=== PATIENT | female | born 1960 | race Two or more races ===

== ENCOUNTER → 2016-09-29 | Outpatient (CLI) | payer BC, OTHER ==
--- NOTE | 2016-09-29 16:28 | REP ---
MRI right foot without and with IV gadolinium: History: Right foot ulcer. No comparison radiographs. Gadolinium enhancement dose: 12 ml of intravenous ProHance is administered, half-dose protocol. Technique: Axial, coronal and sagittal imaging planes are utilized. T1 and T2-weighted scans were obtained in the usual fashion with and without fat saturation. Pre- and post gadolinium enhanced imaging is acquired. MRI findings: I am not able to resolve a skin ulcer. There is an area of induration and dermal thickening dorsally, medially and volar along the distal first metatarsal and at the MTP joint of the great toe. There is diffuse soft tissue edema and enhancement around the first MTP joint region. Abnormal high T2 and low T1 signal intensity are seen in the distal end of the first metatarsal. There is a small well-marginated cystic area in the medial aspect of the distal first metatarsal measuring 0.7 cm in greatest diameter. This enhances in its periphery. There is some remodel ling change in the adjacent bone and this may be chronic bunion change. Gouty arthropathy is a possibility as well. I cannot exclude osteomyelitis of the distal end of the first metatarsal. Bone signal intensity is normal in the proximal phalanx and distal phalanx of the great toe. There is evidence of midfoot and hindfoot arthropathy with subcortical cyst formation on either side of the subtalar joint as well as subcortical cyst formation in the cuboid bone at the calcaneocuboid articulation. There is subcortical cyst formation on either side of the articulation between the tarsal navicula and the medial cuneiform and a small cyst is seen in the lateral cuneiform as well. There is some marrow edema in the proximal end of the 4th metatarsal. There is some enhancement in the periphery of the cyst on either side of the subtalar joint and in the cuboid bone. There is no evidence of soft tissue abscess. Impression: Complex findings with acute appearing inflammation about the first MTP joint. Nonspecific intraosseous signal in the distal first metatarsal. I cannot exclude osteomyelitis in the distal first metatarsal. A chronic-appearing cyst with erosion in the medial aspect of the first metatarsal is seen. 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 Signed by Hay Snider MD 09/29/2016 04:35 P
== END ==
LOC: M RAD 13:12
PROVIDERS: ATTEND Surgery
DX: E11.621 Type 2 diabetes mellitus with foot ulcer (principal)
CPT/HCPCS: 73720; A9576

== ENCOUNTER → 2016-10-17 | Outpatient (REF) | payer BC, OTHER ==
[2016-10-17 16:50] LABS: MEAN CORPUSCULAR HEMOGLOBIN 28.8 pg (27.0-33.0); MEAN CORPUSCULAR HGB CONC 33.7 g/dl (32.0-36.5); MEAN CORPUSCULAR VOLUME 85.6 fl (80.0-96.0); RED CELL DISTRIBUTION WIDTH 13.7 % (11.5-14.5); WHITE BLOOD COUNT 9.4 K/mm3 (4.0-10.0)
== END ==
LOC: M LAB REF 16:25
PROVIDERS: ATTEND Surgery
DX: E11.621 Type 2 diabetes mellitus with foot ulcer (principal)

== ENCOUNTER → 2016-10-18 | Outpatient (CLI) | payer BC, OTHER ==
--- NOTE | 2016-10-18 17:15 | REP ---
White blood cell nuclear scintigraphy: History: Nonpressure chronic ulcer right foot great toe. Technique: 20.5 mCi of technetium 99m labeled white blood cell are injected and anterior and posterior flow, blood pool and 2-1/2 hour delayed images of the feet and ankles are acquired. Scintigraphic findings: The blood flow and blood pool images show normal symmetric soft tissue perfusion of the lower extremities. Delayed scan images show no focus of significant increased uptake or asymmetry with the exception of the plantar views, which show very slightly asymmetric increased uptake in the soft tissues of the great toe on the right compared to the left. Otherwise negative. Impression: Very slightly increased uptake in the soft tissues of the great toe on the right seen on the plantar view only. Signed by Hay Snider MD 10/19/2016 08:02 A
== END ==
LOC: M RAD 06:48
PROVIDERS: ATTEND Surgery
DX: L97.512 Non-pressure chronic ulcer of other part of right foot with fat layer exposed (principal)

== ENCOUNTER 2016-12-15 17:12 | Observation (INO) | payer BC, OTHER ==
[~2016-12-15] VITALS: Ht 170.2 cm; Wt 120.2 kg
[2016-12-15] MEDS ORDERED: ATOR40TA PO (17:32)
[2016-12-15] MEDS ORDERED: TOUJ1.2I SC (17:32)
[2016-12-15] MEDS ORDERED: SERT-138 PO (17:32)
[2016-12-15] MEDS ORDERED: LISINOP/HCTZ (17:32)
[2016-12-15] MEDS ORDERED: INVO100T PO (17:32)
[2016-12-15] MEDS ORDERED: NOVOINJ3 SC (17:32)
[2016-12-15] MEDS ORDERED: BUPR300T34 PO (17:32)
[2016-12-15] MEDS ORDERED: HumuLIN R (REGULAR) INSULIN (NovoLIN R) **100U/ML** PER UNIT IV ONE (20:30)
[2016-12-15] MEDS ORDERED: NS 1,000 ML IV ONE ×2 (20:30→22:30)
[2016-12-15 20:56] LABS: BASO % 0.3 % (0.0-1.0); EOS # 0.3 K/mm3 (0.0-0.50); EOS % 2.1 % (0.0-3.0); LARGE UNSTAINED CELL # 0.1 K/mm3 (0.0-0.4); LYMPH # 1.5 K/mm3 (1.5-4.5); LYMPH % 11.3 % (24.0-44.0); MEAN CORPUSCULAR HEMOGLOBIN 30.1 pg (27.0-33.0); MEAN CORPUSCULAR HGB CONC 33.8 g/dl (32.0-36.5); MEAN CORPUSCULAR VOLUME 89.1 fl (80.0-96.0); MONO # 0.5 K/mm3 (0.0-0.8); MONO % 3.6 % (0.0-5.0); NEUTROPHILS # 10.9 K/mm3 (1.8-7.7); NEUTROPHILS % 81.8 % (36.0-66.0); PLATELET COUNT, AUTOMATED 373 k/mm3 (150-450); RED CELL DISTRIBUTION WIDTH 13.9 % (11.5-14.5); WHITE BLOOD COUNT 13.4 K/mm3 (4.0-10.0)
[2016-12-15] MEDS ORDERED: HumaLOG INSULIN (NovoLOG) PER UNIT SC SCH (21:00)
[2016-12-15 21:05] LABS: VENOUS BASE EXCESS -1.7 (-2.0-2.0); VENOUS O2 SATURATION 40.6 % (60.0-80.0); VENOUS PARTIAL PRESSURE CO2 59.3 mmHg (38.0-50.0); VENOUS PARTIAL PRESSURE O2 24.7 mmHg (30.0-50.0); VENOUS STANDARD HCO3 21.4 MEQ/L; VENOUS TOTAL CO2 28.6 MEQ/L (24.0-28.0)
[2016-12-15 21:24] LABS: ALBUMIN 3.8 GM/DL (3.2-5.2); ALBUMIN/GLOBULIN RATIO 0.84 (1.00-1.93); ALKALINE PHOSPHATASE 120 U/L (45-117); ALT/SGPT 30 U/L (12-78); ANION GAP 12 MEQ/L (8-16); AST/SGOT 15 U/L (15-37); BILIRUBIN,DIRECT 0.2 MG/DL (0.0-0.2); BILIRUBIN,TOTAL 1.1 MG/DL (0.2-1.0); BLOOD UREA NITROGEN 44 MG/DL (7-18); CALCIUM LEVEL 9.6 MG/DL (8.5-10.1); CARBON DIOXIDE LEVEL 27 MEQ/L (21-32); CHLORIDE LEVEL 95 MEQ/L (98-107); GLOMERULAR FILTRATION RATE 22.2 (>51); POTASSIUM SERUM 4.3 MEQ/L (3.5-5.1); SODIUM LEVEL 134 MEQ/L (136-145); TOTAL PROTEIN 8.3 GM/DL (6.4-8.2)
[2016-12-15 21:33] LABS: GLUCOSE, FASTING 478 MG/DL (70-105)
[2016-12-15] MEDS ORDERED: NS 1,000 ML IV SCH (22:22)
[2016-12-15] MEDS ORDERED: ACETAMINOPHEN TAB 650MG DOSE (2X325MG) PO PRN (22:30)
[2016-12-15] MEDS ORDERED: METOCLOPRAMIDE INJ 10MG/2ML VIAL (J2765) IV PRN (22:30)
[2016-12-15] MEDS ORDERED: GLUCAGON FOR INJ 1 MG VIAL (J1610) SC PRN (22:45)
[2016-12-15] MEDS ORDERED: DEXTROSE 50% 50 ML SYRINGE IV PRN (22:45)
[2016-12-15] MEDS ORDERED: GLUCOSE 4 GM CHEW TABLET PO PRN (22:45)
[2016-12-15] MEDS ORDERED: LISI20TA PO (23:00)
[2016-12-15] MEDS ORDERED: VITA50003 PO (23:00)
--- NOTE | 2016-12-15 23:13 | HPE ---
DATE OF ADMISSION: 12/15/2016 This is a patient of Dayana Sotelo, a patient of Dr. Olivares, a patient of the [facility]. CHIEF COMPLAINT: Nausea. The following is a summary of her presentation: This is a 56-year-old female who has not been feeling well since 12/13/2016. Around lunchtime on 12/13/2016, she began to feel dizzy and nauseous. She describes the dizziness not as vertiginous, but more as a feeling of weakness and general malaise. She went to the bathroom and in the process of getting ready to vomit, she passed out and landed on her right knee, fell backwards. Her head apparently did not hit the ground and she recovered. No one witnessed the events, but she does not have memory of everything about the event, although there was foreshadowing that the event was about to occur. She felt fine immediately afterwards. Her fingerstick that she checked afterwards was around 289. She continued working. She went home for the day. At home, she vomited and then slept well that night. On 12/14/2016, she worked the entire day, felt relatively well, tolerated diet and slept okay. Then, on the morning of 12/15/2016, her fingerstick was 276. She went to work. She ate a breakfast bar for breakfast, took her medications as normal and then at work again began to feel quite nauseous and dizzy, got a ride home from a friend and canceled an appointment with Dr. Chun. She has had some variability in her fingersticks over the course of the last week. She has not had abdominal pain. She has not had a sense of fullness. No change in her bowel habits. She has been experiencing cold sweats associated with the nausea but no fever, no sick contact. She has not eaten out. She has had no recent history of foreign travel. She did have some gas on Monday night, 12/11/2016, after eating some onions in a potato salad. She has had an episode of vasovagal syncope with a blood draw previously. She has been previously admitted with diabetic ketoacidosis around 15 years ago. Past surgical history is notable for sections. Past medical history is notable for insulin-dependent diabetes, hypertension, hyperlipidemia, anemia, depression, history of polycystic ovarian disease, history of chronic kidney disease, seasonal allergies. ALLERGIES: Include SULFA DRUGS. FAMILY HISTORY: Notable for her father who is alive with diabetes, on dialysis and hypertension. Mother at age 68 with a history of heart disease. SOCIAL HISTORY: She is a former smoker. She works as a horseback excavator. REVIEW OF SYSTEMS: Notable for a headache, which has been chronic. She says her headaches are worse this time of year with pollen. No visual changes, no runny nose, no sore throat. No cough, no shortness of breath. No dysuria. No increased frequency. No change in bowel or bladder habits. She has a chronic right toe ulcer for which she has been following Dr. Chun, otherwise unremarkable. PHYSICAL EXAMINATION: Temperature is 97.9, pulse 103, respiratory rate 18, blood pressure 108/74, 96% on room air. Body mass index is 41.5. This is a 56-year-old who is awake, appropriately interactive, pleasantly conversant, not currently in any distress. Head is normocephalic. Sinuses are nontender. Pupils are equal, round, and reactive, anicteric, not injected. Nasal septum is midline. Mucous membranes are moist. There is evidence of thrush on her tongue. Neck is supple, thick. No cervical or supraclavicular adenopathy. Breathing is symmetrical, rested. I:E ratio is 1:3. No costovertebral angle tenderness. No sacral edema. Heart is in a regular rate and rhythm, distant sounding, normal S1, S2. Radial pulse 2+. Capillary refill is less than 2 seconds. Abdomen is soft, hypoactive bowel sounds, nontender to deep palpation. There are subcutaneous areas of thickness where she probably does frequent injections. We did discuss the need to rotate injection sites. No significant lower extremity edema. Her right great toe is cleanly dressed. There is a small hematoma under the second toe on the right foot. Sensation is grossly intact, although there is a history of diabetic neuropathy. Labs available for me to review include the following: White count 13.4, hemoglobin 17.5 and platelets of 373. Sodium is 134, potassium 4.3, chloride 95, carbon dioxide 27, anion gap is 12, BUN 44, creatinine 2.4 and glucose of 478, total bilirubin 1.1, alkaline phosphatase 120, total protein 8.3, albumin 3.8. UA is notable for 2+ leukocyte esterase, too numerous to count white cells, beta hydroxybutyrate is 17.7, point of care glucose is 395. EKG shows sinus rhythm at a rate of 89, QRS of 100, QTc of 419. No acute ST-T wave changes. My assessment is as follows: This is a 56-year-old with likely gastroenteritis or gastroparesis, ongoing nausea with hyperglycemia, nearly at the turning point for diabetic ketoacidosis. The patient will require a two midnight hospital stay for further diagnostic and workup. Plan is as follows: 1. Endocrine. The patient is at the cusp of developing diabetic ketoacidosis. Will be given intravenous (IV) fluids and insulin, monitored closely. At this point, she feels as though she may be able to take some diet and so that has been offered. If she develops nausea, will give Reglan as I have a suspicion that she may have some element of diabetic gastroparesis. I did add a lipase on, which I believe will be negative. 2. Syncope. The patient had a syncopal event, which may have been vasovagal given its presentation, but I believe monitoring her on telemetry is warranted. No findings on EKG at this moment that would suggest underlying arrhythmia. Will repeat an EKG in the morning. I have ordered a cardiac marker as well. 3. Abnormal Urinalysis. The patient does not have urinary symptoms but does have some known neuropathy. Will order a urine culture and follow. I have not ordered antibiotics at this time, but that could be an inciting cause of her presentation. 4. The patient has a chronic right great toe ulcer. Will continue with wound care as per outpatient plan. 5. The patient has thrush. Will order nystatin and check a hemoglobin A1c. 6. The patient has hypertension. Her creatinine is likely above baseline, which I would imagine is right around 2. Will hold her angiotensin-converting enzyme (ADRIANA) inhibitor and hydrochlorothiazide. 7. Deep vein thrombosis (DVT) prophylaxis ordered in the form of heparin.
[2016-12-15] MEDS: HEPARIN SOD (PORCINE) 5000 UNITS/ML VIAL SC SCH (23:38)
[2016-12-15] MEDS: LEVEMIR (INSULIN DETEMIR) 1 UNITS/0.01ML SC SCH (23:38)
[2016-12-16] MEDS ORDERED: HumaLOG INSULIN (NovoLOG) PER UNIT SC ONE (02:30)
[2016-12-16] MEDS: NYSTATIN 500,000 U/5 ML SUSP UDC SS SCH ×2 (06:35)
[2016-12-16 07:09] LABS: MEAN CORPUSCULAR HEMOGLOBIN 29.6 pg (27.0-33.0); MEAN CORPUSCULAR HGB CONC 34.4 g/dl (32.0-36.5); MEAN CORPUSCULAR VOLUME 86.1 fl (80.0-96.0); RED CELL DISTRIBUTION WIDTH 13.9 % (11.5-14.5); WHITE BLOOD COUNT 9.1 K/mm3 (4.0-10.0)
[2016-12-16 07:21] VITALS: BP 121/59
[2016-12-16] MEDS ORDERED: HumaLOG INSULIN (NovoLOG) PER UNIT SC SCH (07:30)
[2016-12-16 07:34] LABS: ALBUMIN 2.8 GM/DL (3.2-5.2); ALBUMIN/GLOBULIN RATIO 0.67 (1.00-1.93); ALKALINE PHOSPHATASE 93 U/L (45-117); ALT/SGPT 23 U/L (12-78); ANION GAP 9 MEQ/L (8-16); AST/SGOT 13 U/L (15-37); BILIRUBIN,TOTAL 0.6 MG/DL (0.2-1.0); BLOOD UREA NITROGEN 32 MG/DL (7-18); CALCIUM LEVEL 8.4 MG/DL (8.5-10.1); CARBON DIOXIDE LEVEL 26 MEQ/L (21-32); CHLORIDE LEVEL 105 MEQ/L (98-107); GLOMERULAR FILTRATION RATE 38.1 (>51); GLUCOSE, FASTING 214 MG/DL (70-105); MAGNESIUM LEVEL 2.1 MG/DL (1.8-2.4); POTASSIUM SERUM 3.8 MEQ/L (3.5-5.1); SODIUM LEVEL 140 MEQ/L (136-145)
[2016-12-16] MEDS ORDERED: PANTOPRAZOLE 40MG TAB (PROTONIX) PO SCH (09:00)
[2016-12-16] MEDS: HEPARIN SOD (PORCINE) 5000 UNITS/ML VIAL SC SCH (09:06)
[2016-12-16] MEDS: LEVEMIR (INSULIN DETEMIR) 1 UNITS/0.01ML SC SCH (09:52)
[2016-12-16] MEDS ORDERED: TOUJ1.2I SC (10:26)
[2016-12-16] MEDS ORDERED: ONDA4TAB6 PO (10:47)
--- NOTE | 2016-12-16 16:04 | DSES ---
DATE OF ADMISSION: 12/15/2016 DATE OF DISCHARGE: 12/16/2016 PRIMARY CARE PROVIDER: YAHIR Duvall PAPER NOVELTY MAKER: [facility] CONSULTATIONS: None. PROCEDURES: None. RELEVANT TESTING: Glucose on admission 478. PRIMARY ADMITTING DIAGNOSES: 1. Dehydration. 2. Acute kidney injury. 3. Weakness. 4. Syncope. 5. Early diabetic ketoacidosis (DKA). 6. Type 2 diabetes with hyperglycemia. 7. Abnormal urinalysis. 8. Leukocytosis. SECONDARY ADMITTING DIAGNOSES: 1. Chronic right great toe ulcer. 2. Thrush. 3. Type 2 diabetes, insulin dependent. 4. Obesity, body mass index (BMI) 42. BRIEF HOSPITAL COURSE: Ms. Orourke is a 56-year-old female with type 2 diabetes on insulin who presented to the emergency department (ED) on 12/15/2016 for of nausea and dizziness. Reportedly has not been feeling well since 12/13/2016 , had poor appetite, thought she might have a "stomach bug." On the day of admission, she attempted to go to the bathroom and as she was ready to vomit, she passed out and landed on her right knee. Her head did not hit the ground and she recovered immediately. Episode was not witnessed. Her fingerstick at that time was found to be 289. The episode occurred while at work and she later came home and continued to have episodes of emesis. She reportedly has a history of vasovagal syncope from blood draws in the past. Because of her symptoms, she was admitted for close monitoring. She did not have any event on telemetry. EKG did not show underlying arrhythmia. Her cardiac markers were negative. She was admitted and did receive two liters boluses. With boluses and IV fluid hydration her condition resolved even before she was admitted. Her renal function improved significantly compared to admission after her home diuretics along with angiotensin-converting enzyme (ADRIANA) inhibitor were held. Although her urinalysis did show abnormality in terms of leukocyte esterase, nitrite was negative and she did not have any symptoms, therefore she was not started on antibiotics. Because of her significantly improved condition, she was amenable to be discharged with close followup with her primary care provider (PCP). PHYSICAL EXAMINATION: At time of discharge: VITAL SIGNS: Blood pressure 121/59, heart rate 90, temperature 97.9, pulse oximetry 95% on room air. GENERAL: Patient is lying in bed, comfortable, in no acute distress. Alert, awake, oriented times three. Pleasant and cooperative. HEENT: Normocephalic, atraumatic. Moist oral mucosa. NECK: Supple, trachea midline, large neck. Could not appreciate jugular venous distention (JVD) secondary to large neck size. CHEST: Symmetric chest rise, no accessory muscle use. Breath sounds were clear to auscultation bilaterally. HEART: Regular rate and rhythm with normal S1, S2. ABDOMEN: Soft, nontender, nondistended. Bowel sounds present. No guarding, no rebound. EXTREMITIES: No pedal edema. Pedal pulses present bilaterally. NEUROLOGIC: No focal deficits appreciated. MUSCULOSKELETAL: Right 1st metatarsal currently being wrapped. She reportedly follows with Dr. Chun. Sensory intact. No focal deficit deficits appreciated. LABORATORY DATA: WBC 9.1, hemoglobin 14.6, hematocrit 42.5, platelets 278. Sodium 140, potassium 3.8, chloride 105, carbon dioxide 26, BUN 32, creatinine 1.5, glucose 214, calcium 8.4. Liver profile normal. Cardiac marker normal. DISPOSITION: Discharged home. CONDITION: Stable. ACTIVITY: As tolerated. DIET: Carbohydrate consistency diet. DISCHARGE MEDICATIONS: Include: - Zofran ODT 4 mg every 6 hours as needed - Lipitor 40 mg by mouth daily - Wellbutrin 300 mg by mouth nightly - Invokana 100 mg by mouth daily - vitamin 50,000 units on Saturdays - insulin sliding scale - sertraline 100 mg daily - Toujeo 100 units nightly but dose from 12/16/2016 should be 40 units Stop the following home medications: - lisinopril and hydrochlorothiazide until evaluation by her PCP after repeat blood work FOLLOWUP: Followup with Ms. Dayana Sotelo next week, [facility] in 2 weeks. Patient is to take her Toujeo medication but only 40 units at night tonight and resume regular dose starting tomorrow. She should have repeat blood work on Monday with results faxed to primary care provider 's (PCP) office. The patient was instructed to return to the hospital if she has worsening or recurrent symptoms or anything else concerning to patient and family. All of this was explained to the patient at the time of discharge and all questions answered. TIME SPENT: 35 minutes. My preceptor for this patient encounter was Dr. Yolanda Barrow. The preceptor was physically present in the building during the encounter and was fully available. As needed, all aspects of the patient interview, examination, medical decision making process, and medical care plan development were reviewed and approved by the preceptor. The preceptor is aware and concurs with the plan as stated in the body of this note and will attest to such by his cosignature. PA
--- NOTE | 2016-12-17 07:53 | ECGEPIP ---
Stationary ECG Study [facility] Test Date: 2016-12-16 Pat Name: NEDRA ALCOCER Department: Room: [place] [address] Gender: F Software Engineering Project Manager: rebekah : 1960 Requested By: KAROL Purdy Order Number: [id number] Reading MD: Osmani Disla Measurements Intervals [place] Rate: 87 P: 54 IA: 150 QRS: -6 QRSD: 114 T: 48 QT: 393 QTc: 473 Interpretive Statements Normal sinus rhythm Nonspecific T wave abnormality No significant change when compared to prior tracing of 12/15/2016 Correct placement c/w prior in leads V1 & V2 Electronically Signed On 12-17-2016 7:53:48 EDT by Osmani Disla
--- NOTE | 2016-12-17 08:39 | ECGEPIP ---
Stationary ECG Study [facility] - ED Test Date: 2016-12-15 Pat Name: NEDRA ALCOCER Department: Room: [place] [address] Gender: F Chief Wellness Officer: joshua : 1960 Requested By: ANGEL MANCIA PA-C. Order Number: [id number] Reading MD: Shirin Castillo Measurements Intervals [place] Rate: 89 P: 43 [place]: 142 QRS: -13 QRSD: 100 T: 39 QT: 373 QTc: 454 Interpretive Statements SINUS RHYTHM ?PRIOR INFERIOR INFARCT SIMILAR 12/16/16 Electronically Signed On 12-17-2016 8:39:09 EDT by Shirin Castillo
== END 2016-12-16 11:30 | disposition home or self-care (01) ==
LOC: M ED 18:21 → M ED INP 22:22 → INTOOBSV 22:22 → M ED INP 12-16 11:30
PROVIDERS: ADMIT Internal Medicine; ATTEND Internal Medicine
DX: E86.0 Dehydration (principal); N17.9 Acute kidney failure, unspecified; R53.1 Weakness; R55 Syncope and collapse; E13.10 Other specified diabetes mellitus with ketoacidosis without coma; R82.99 Other abnormal findings in urine; D72.829 Elevated white blood cell count, unspecified; I12.9 Hypertensive chronic kidney disease with stage 1 through stage 4 chronic kidney disease, or unspecified chronic kidney disease; E78.4 Other hyperlipidemia; D64.9 Anemia, unspecified; N18.9 Chronic kidney disease, unspecified; E11.65 Type 2 diabetes mellitus with hyperglycemia; Z79.4 Long term (current) use of insulin; E66.9 Obesity, unspecified; Z79.899 Other long term (current) drug therapy; Z88.2 Allergy status to sulfonamides; E28.2 Polycystic ovarian syndrome; L97.809 Non-pressure chronic ulcer of other part of unspecified lower leg with unspecified severity

== ENCOUNTER → 2017-01-02 | Outpatient (CLI) | payer BC, OTHER ==
[~2017-01-02] MED LIST: ATOR40TA PO; BUPR300T34 PO; INVO100T PO; LISI20TA PO; LISINOP/HCTZ; NOVOINJ3 SC; ONDA4TAB6 PO; SERT-138 PO; TOUJ1.2I SC; VITA50003 PO
== END ==
LOC: M WUC 08:43
PROVIDERS: ATTEND Nurse Practitioner Adult Health
DX: E78.00 Pure hypercholesterolemia, unspecified (principal)

== ENCOUNTER → 2017-07-10 | Outpatient (CLI) | payer OTHER, BC ==
[~2017-07-10] MED LIST changes: -ATOR40TA PO; +ATOR40TA75 PO; +VITA1CAP40 PO; -VITA50003 PO
[2017-07-10 09:46] LABS: ALBUMIN 3.6 GM/DL (3.2-5.2); ALBUMIN/GLOBULIN RATIO 0.95 (1.00-1.93); BILIRUBIN,TOTAL 0.7 MG/DL (0.2-1.0); CALCIUM LEVEL 9.3 MG/DL (8.5-10.1); CREATININE FOR GFR 1.24 MG/DL (0.55-1.02); GLOMERULAR FILTRATION RATE 47.5 (>51); POTASSIUM SERUM 4.6 MEQ/L (3.5-5.1); TOTAL PROTEIN 7.4 GM/DL (6.4-8.2)
== END ==
LOC: M WUC 08:15
PROVIDERS: ATTEND Nurse Practitioner Adult Health
DX: E78.00 Pure hypercholesterolemia, unspecified (principal); E55.9 Vitamin D deficiency, unspecified

== ENCOUNTER 2017-10-26 18:55 | Emergency (ER) | payer BC, OTHER ==
[2017-10-26] MEDS: PERCOCET 5MG/325MG TAB PO (20:04)
== END 2017-10-26 21:27 | disposition home or self-care (01) ==
LOC: M ED 18:55
DX: S83.91XA Sprain of unspecified site of right knee, initial encounter (principal); S80.01XA Contusion of right knee, initial encounter; W00.0XXA Fall on same level due to ice and snow, initial encounter; Y92.481 Parking lot as the place of occurrence of the external cause; E11.9 Type 2 diabetes mellitus without complications; E78.00 Pure hypercholesterolemia, unspecified; Z79.899 Other long term (current) drug therapy; Z79.4 Long term (current) use of insulin; Z87.891 Personal history of nicotine dependence
CPT/HCPCS: 73564

== ENCOUNTER 2017-11-03 14:13 | Day surgery (SDC) | payer BC, OTHER ==
[2017-11-03] MEDS ORDERED: LIDOCAINE 2% MDV 20 ML VIAL (14:14)
[2017-11-03] MEDS ORDERED: ROPIvacaine 0.5% 30 ML INJECTION (J2795 PER 1MG) (14:14)
[2017-11-03] MEDS ORDERED: dexameTHASONE 10 MG/1 ML VIAL PRES.FREE (J1100) (14:14)
[2017-11-03] MEDS: LR 1,000 ML IV ×3 (15:14→21:50)
[2017-11-03 15:25] LABS: BEDSIDE GLUCOSE 216 MG/DL (70-105)
[2017-11-03] MEDS ORDERED: LIDOCAINE 1% MDV 20ML VIAL SQ (16:30)
[2017-11-03] MEDS: HumaLOG INSULIN (NovoLOG) PER UNIT SC ×2 (16:32→21:00)
[2017-11-03] MEDS ORDERED: fentaNYL 100 MCG/2 ML INJECTION (J3010) As Ordered ×2 (17:13→17:18)
[2017-11-03] MEDS ORDERED: MIDAZOLAM INJ 2 MG/2 ML VIAL (J2250) As Ordered ×3 (17:13→19:00)
[2017-11-03] MEDS ORDERED: PROPOFOL 200 MG/20 ML VIAL As Ordered (17:17)
[2017-11-03] MEDS: fentaNYL 100 MCG/2 ML INJECTION (J3010) IV (17:22)
[2017-11-03] MEDS: MIDAZOLAM INJ 2 MG/2 ML VIAL (J2250) IV (17:22)
[2017-11-03 17:23] LABS: BEDSIDE GLUCOSE 150 MG/DL (70-105)
[2017-11-03] MEDS ORDERED: MIDAZOLAM INJ 2 MG/2 ML VIAL (J2250) IV (17:45)
[2017-11-03] MEDS ORDERED: fentaNYL 100 MCG/2 ML INJECTION (J3010) IV (20:15)
[2017-11-03] MEDS ORDERED: HYDROmorphone HCL 1 MG/ML SYRINGE (J1170) IV (20:15)
[2017-11-03] MEDS ORDERED: ONDANSETRON 4MG/2ML VIAL (J2405) IV ×2 (20:15→20:30)
[2017-11-03] MEDS ORDERED: PERCOCET 5MG/325MG TAB PO ×2 (20:15→20:30)
[2017-11-03] MEDS ORDERED: ACETAMINOPHEN TAB 650MG DOSE (2X325MG) PO (20:30)
[2017-11-03] MEDS ORDERED: MORPHINE 4 MG/ML 1ML VIAL (J2270) IV (20:30)
[2017-11-03] MEDS ORDERED: DEXTROSE 50% 50 ML SYRINGE IV (21:00)
[2017-11-03] MEDS ORDERED: GLUCAGON FOR INJ 1 MG VIAL (J1610) SC (21:00)
[2017-11-03] MEDS ORDERED: GLUCOSE 4 GM CHEW TABLET PO (21:00)
[2017-11-03 21:15] LABS: BEDSIDE GLUCOSE 90 MG/DL (70-105)
[2017-11-03] MEDS: SERTRALINE 100 MG TAB PO (21:50)
[2017-11-03] MEDS: IBUPROFEN 600 MG TAB PO (21:50)
[2017-11-03] MEDS: ATORVASTATIN 20 MG TAB PO (21:50)
[2017-11-04] MEDS: PERCOCET 5MG/325MG TAB PO ×3 (00:02→08:19)
[2017-11-04] MEDS: IBUPROFEN 600 MG TAB PO (04:07)
[2017-11-04] MEDS: HumaLOG INSULIN (NovoLOG) PER UNIT SC (08:20)
[2017-11-04] MEDS: ENOXAPARIN 40 MG/0.4 ML SYRINGE (J1650) SC (08:20)
[2017-11-05] MEDS ORDERED: buPROPion **XL** TABLET 150MG (WELLBUTRIN XL) PO (09:00)
[2017-11-06 07:48] LABS: BEDSIDE GLUCOSE 189 MG/DL (70-105)
[2017-11-06 07:48] LABS: BEDSIDE GLUCOSE 167 MG/DL (70-105)
[2017-11-06 12:05] LABS: BEDSIDE GLUCOSE 373 MG/DL (70-105)
== END 2017-11-04 11:40 | disposition home or self-care (01) ==
LOC: M SDC 14:13 → M MS5PR 11-04 00:30 → M SDC 11-04 11:40
DX: S76.111A Strain of right quadriceps muscle, fascia and tendon, initial encounter (principal); W19.XXXA Unspecified fall, initial encounter; Y92.89 Other specified places as the place of occurrence of the external cause; Y93.89 Activity, other specified; Y99.8 Other external cause status; I12.9 Hypertensive chronic kidney disease with stage 1 through stage 4 chronic kidney disease, or unspecified chronic kidney disease; E11.9 Type 2 diabetes mellitus without complications; F43.23 Adjustment disorder with mixed anxiety and depressed mood; R06.83 Snoring; N18.3 Chronic kidney disease, stage 3 (moderate); E78.5 Hyperlipidemia, unspecified; R39.81 Functional urinary incontinence; E55.9 Vitamin D deficiency, unspecified; K75.81 Nonalcoholic steatohepatitis (NASH); E66.01 Morbid (severe) obesity due to excess calories; Z68.41 Body mass index [BMI] 40.0-44.9, adult; Z79.899 Other long term (current) drug therapy; Z79.4 Long term (current) use of insulin; Z79.82 Long term (current) use of aspirin; Z78.0 Asymptomatic menopausal state
CPT/HCPCS: 27385

== ENCOUNTER 2017-11-18 05:56 | Emergency (ER) | payer BC, OTHER ==
[2017-11-18 06:47] LABS: BASO # 0.1 10^3/uL (0.0-0.2); BASO % 0.3 % (0.0-1.0); HEMATOCRIT 39.4 % (36.0-47.0); HEMOGLOBIN 12.9 g/dl (12.0-15.5); IMMATURE GRANULOCYTE % 1.4 % (0-3.0); LYMPH # 0.4 10^3/uL (1.5-4.5); LYMPH % 2.2 % (24.0-44.0); MEAN CORPUSCULAR HEMOGLOBIN 28.1 pg (27.0-33.0); MEAN CORPUSCULAR HGB CONC 32.7 g/dl (32.0-36.5); MEAN CORPUSCULAR VOLUME 85.8 fl (80.0-96.0); MONO # 0.7 10^3/uL (0.0-0.8); MONO % 3.8 % (0.0-5.0); NEUTROPHILS # 16.8 10^3/uL (1.8-7.7); NEUTROPHILS % 92.3 % (36.0-66.0); PLATELET COUNT, AUTOMATED 251 10^3/uL (150-450); RED BLOOD COUNT 4.59 10^6/uL (4.00-5.40); RED CELL DISTRIBUTION WIDTH 13.3 % (11.5-14.5); WHITE BLOOD COUNT 18.3 10^3/uL (4.0-10.0)
[2017-11-18] MEDS: ONDANSETRON 4MG/2ML VIAL (J2405) IV (06:51)
[2017-11-18] MEDS: NS 1,000 ML IV (07:00)
[2017-11-18 07:09] LABS: ALBUMIN 2.8 GM/DL (3.2-5.2); ALKALINE PHOSPHATASE 126 U/L (45-117); ALT/SGPT 37 U/L (12-78); ANION GAP 15 MEQ/L (8-16); AST/SGOT 34 U/L (7-37); BILIRUBIN,DIRECT 0.3 MG/DL (0.0-0.2); BILIRUBIN,TOTAL 1.3 MG/DL (0.2-1.0); BLOOD UREA NITROGEN 29 MG/DL (7-18); CALCIUM LEVEL 8.8 MG/DL (8.5-10.1); CARBON DIOXIDE LEVEL 20 MEQ/L (21-32); CHLORIDE LEVEL 95 MEQ/L (98-107); CREATININE FOR GFR 1.73 MG/DL (0.55-1.30); GLOMERULAR FILTRATION RATE 32.2 (>51); LIPASE 127 U/L (73-393); POTASSIUM SERUM 4.6 MEQ/L (3.5-5.1); SODIUM LEVEL 130 MEQ/L (136-145); TOTAL PROTEIN 6.8 GM/DL (6.4-8.2)
[2017-11-18 07:33] LABS: LACTIC ACID SEPSIS PROTOCOL 2.1 MMOL/L (0.4-2.0)
[2017-11-18 07:34] LABS: GLUCOSE, FASTING 498 MG/DL (70-100)
[2017-11-18] MEDS ORDERED: SODIUM CHLORIDE IV (08:00)
[2017-11-18 08:21] LABS: VENOUS BASE EXCESS -2.4 (-2.0-2.0); VENOUS HCO3 20.7 MEQ/L (23.0-27.0); VENOUS PARTIAL PRESSURE CO2 31.2 mmHg (38.0-50.0); VENOUS PARTIAL PRESSURE O2 89.6 mmHg (30.0-50.0); VENOUS STANDARD HCO3 22.4 MEQ/L; VENOUS TOTAL CO2 21.7 MEQ/L (24.0-28.0)
[2017-11-18] MEDS: NS 1,400 ML IV (08:27)
[2017-11-18 08:35] LABS: OSMOLALITY SERUM 303 MOSM/KG (275-295)
[2017-11-18 08:39] LABS: ESTIMATED AVERAGE GLUCOSE 200 MG/DL (60-110); HEMOGLOBIN A1c 8.6 %
[2017-11-18 09:22] LABS: PHOSPHORUS LEVEL 3.2 MG/DL (2.5-4.9)
[2017-11-18 11:21] LABS: VENOUS BASE EXCESS -4.4 (-2.0-2.0); VENOUS HCO3 20.4 MEQ/L (23.0-27.0); VENOUS O2 SATURATION 94.9 % (60.0-80.0); VENOUS PARTIAL PRESSURE CO2 36.7 mmHg (38.0-50.0); VENOUS PARTIAL PRESSURE O2 78.7 mmHg (30.0-50.0); VENOUS PH 7.363 UNITS (7.330-7.430); VENOUS STANDARD HCO3 20.8 MEQ/L; VENOUS TOTAL CO2 21.5 MEQ/L (24.0-28.0)
[2017-11-18 11:29] LABS: KETONE, URINE AUTO RFX 1+ mg/dL (NEGATIVE); LEUKOCYTE ESTERASE UR AUTO RFX 2+ (NEGATIVE); NITRITE, URINE AUTO RFX POSITIVE (NEGATIVE); RBC, URINE AUTO RFX 2 /HPF (0-3); SQUAM EPITHELIAL CELL UR AURFX 1 /HPF (0-6); WBC, URINE AUTO RFX 59 /HPF (0-3)
[2017-11-18 11:40] LABS: ANION GAP 10 MEQ/L (8-16); BLOOD UREA NITROGEN 29 MG/DL (7-18); CARBON DIOXIDE LEVEL 25 MEQ/L (21-32); CHLORIDE LEVEL 102 MEQ/L (98-107); CREATININE FOR GFR 1.66 MG/DL (0.55-1.30); GLOMERULAR FILTRATION RATE 33.8 (>51); POTASSIUM SERUM 4.1 MEQ/L (3.5-5.1); SODIUM LEVEL 137 MEQ/L (136-145)
[2017-11-18 11:41] LABS: GLUCOSE, FASTING 413 MG/DL (70-100)
[2017-11-18] MEDS: HumuLIN R (REGULAR) INSULIN (NovoLIN R) **100U/ML** PER UNIT SC (11:53)
[2017-11-18] MEDS: ONDANSETRON 4 MG ORAL DISINTEGRATING TAB (S0181) PO (12:41)
[2017-11-19 05:32] LABS: BEDSIDE GLUCOSE 447 MG/DL (70-105)
== END 2017-11-18 12:43 | disposition home or self-care (01) ==
LOC: M ED 05:56
DX: N17.9 Acute kidney failure, unspecified (principal); E11.9 Type 2 diabetes mellitus without complications; K80.20 Calculus of gallbladder without cholecystitis without obstruction; K76.0 Fatty (change of) liver, not elsewhere classified; R94.31 Abnormal electrocardiogram [ECG] [EKG]; Z79.4 Long term (current) use of insulin; Z79.01 Long term (current) use of anticoagulants; Z79.899 Other long term (current) drug therapy; Z87.891 Personal history of nicotine dependence
CPT/HCPCS: J2405

== ENCOUNTER → 2020-02-20 | Outpatient (CLI) | payer BC ==
[~2020-02-20] MED LIST changes: -BUPR300T34 PO; +BUPR300T92 PO; +HYDR-3715 PO; +IBUP-1022 PO; -LISI20TA PO; +LISI20TA19 PO; +LOVE1INJ SC; +OXYCOD/APAP; +VITA100067 PO; -VITA1CAP40 PO; +VITA50005 PO
--- NOTE | 2020-02-20 10:49 | REPMRS ---
Patient History The patient states she had a clinical breast exam in February 2020. Patient is postmenopausal and had first child at age 33. Family history of colorectal cancer in maternal grandfather, bone cancer in maternal uncle. Digital Woman Screen Mammo: February 20, 2020 - Exam #: [id number] Bilateral CC and MLO view(s) were taken. Technologist: Tracy Roth Technologist Prior study comparison: November 27, 2015, bilateral digital woman screen mammo, performed at [facility]. August 24, 2011, bilateral digital woman screen mammo, performed at [facility]. June 07, 2007, bilateral digital woman screen mammo, performed at [facility]. FINDINGS: There are scattered fibroglandular densities. The Volpara volumetric breast density category is:B. There has been no change in the appearance of the mammogram from the prior studies. There is a mild amount of scattered fibroglandular density which is fairly symmetric. There is no interval development of dominant mass, architectural distortion, or grouped microcalcification suggestive of malignancy. 3-D tomosynthesis shows no additional findings. Assessment: BI-RADS/ACR category 1 mammogram. Negative Mammogram. Recommendation Routine screening mammogram of both breasts in 1 year (for women over age 40). This patient's Lifetime Breast Cancer Risk is estimated at 11.2 %. This mammogram was interpreted with the aid of an FDA-approved computer-aided dectection system. Electronically Signed By: Brayan Snider MD 02/20/20 1040
== END ==
LOC: M WHC 08:53
PROVIDERS: ATTEND Nurse Practitioner Women's Health
DX: Z12.31 Encounter for screening mammogram for malignant neoplasm of breast (principal); Z80.0 Family history of malignant neoplasm of digestive organs; Z80.8 Family history of malignant neoplasm of other organs or systems

== ENCOUNTER → 2020-02-20 | Outpatient (REF) | payer OTHER | LOC: M SFHCWAGY 08:56 | PROVIDERS: ATTEND Nurse Practitioner Women's Health | DX: Z12.4 Encounter for screening for malignant neoplasm of cervix (principal) | CPT/HCPCS: 87624; G0123 ==

== ENCOUNTER → 2020-03-02 | Outpatient (CLI) | payer BC ==
[~2020-03-02] MED LIST changes: -LISI20TA19 PO; +LISI20TA35 PO
--- NOTE | 2020-03-02 23:22 | REP ---
REASON: Postmenopausal bleeding. PRIORS: None. Transvesical and transvaginal imaging was performed. The uterus measures 12.5 x 5.4 x 4.4 cm. The parenchymal echo pattern is somewhat heterogenous, but there are no discrete masses. The endometrial echo complex is thickened, measuring 1.6 cm in its greatest thickness. In addition, the endometrial echo complex is heterogenous and there is an 8 mm sized hypoechoic area within the ECC. Neither ovary could be seen transvesically or transvaginally. IMPRESSION: 1. Abnormal endometrial echo complex, as described above, and seen with a possible intracavitary nodule. Neoplastic change cannot be ruled out. 2. No discrete uterine parenchymal fibroids were noted; however, there was an area of shadowing seen posteriorly, which could indicate a calcified fibroid. This measured approximately 3.7 x 4.7 x 4.1 cm. That measurement of shadowing is an estimate. 3. Consider followup with a pre and post gadolinium-enhanced pelvic MRI if clinically relevant.
== END ==
LOC: M WHC 10:57
PROVIDERS: ATTEND Nurse Practitioner Women's Health
DX: N95.0 Postmenopausal bleeding (principal); R10.2 Pelvic and perineal pain

== ENCOUNTER → 2020-03-23 | Outpatient (REF) | payer BC, OTHER | LOC: M SFHCWAGY 10:09 | PROVIDERS: ATTEND Nurse Practitioner Women's Health | DX: N95.0 Postmenopausal bleeding (principal) ==

== ENCOUNTER → 2020-03-23 | Outpatient (REF) | payer OTHER ==
[2020-04-19 05:12] LABS: BASO # 0.1 10^3/uL (0.0-0.2); BASO % 0.6 % (0.0-1.0); EOS # 0.5 10^3/uL (0.0-0.5); HEMATOCRIT 50.5 % (36.0-47.0); HEMOGLOBIN 15.5 g/dl (12.0-15.5); LYMPH # 1.8 10^3/uL (1.5-5.0); LYMPH % 20.1 % (24.0-44.0); MEAN CORPUSCULAR HEMOGLOBIN 27.6 pg (27.0-33.0); MEAN CORPUSCULAR HGB CONC 30.7 g/dl (32.0-36.5); MONO # 0.7 10^3/uL (0.0-0.8); MONO % 7.5 % (0.0-5.0); NEUTROPHILS # 5.9 10^3/uL (1.5-8.5); NEUTROPHILS % 65.9 % (36.0-66.0); PLATELET COUNT, AUTOMATED 288 10^3/uL (150-450); RED BLOOD COUNT 5.61 10^6/uL (4.00-5.40)
[2020-05-02 21:04] LABS: ALBUMIN 3.8 GM/DL (3.2-5.2); ALT/SGPT 33 U/L (12-78); BILIRUBIN,TOTAL 0.3 MG/DL (0.2-1.0); BLOOD UREA NITROGEN 29 MG/DL (7-18); CALCIUM LEVEL 9.2 MG/DL (8.8-10.2); CARBON DIOXIDE LEVEL 32 MEQ/L (21-32); CHLORIDE LEVEL 101 MEQ/L (98-107); CHOLESTEROL LEVEL 230 MG/DL (<200); CHOLESTEROL RISK RATIO 8.214 (<5); CREATININE FOR GFR 1.49 MG/DL (0.55-1.30); GLUCOSE, FASTING 125 MG/DL (70-100); HDL CHOLESTEROL 28 MG/DL (>40); LDL CHOLESTEROL 158 MG/DL (<100); NON-HDL-C 202 MG/DL; POTASSIUM SERUM 4.7 MEQ/L (3.5-5.1); SODIUM LEVEL 138 MEQ/L (136-145); TOTAL PROTEIN 7.7 GM/DL (6.4-8.2); TRIGLYCERIDES LEVEL 221 MG/DL (<150)
[2020-05-02 21:08] LABS: HEMOGLOBIN A1c 6.9 %; TOTAL 25(OH) VITAMIN D 20.5 NG/ML (30.0-100.0)
== END ==
LOC: M PLALAB 09:30
PROVIDERS: ATTEND Internal Medicine
DX: E11.65 Type 2 diabetes mellitus with hyperglycemia (principal); Z79.4 Long term (current) use of insulin; R53.83 Other fatigue; E78.5 Hyperlipidemia, unspecified; E55.9 Vitamin D deficiency, unspecified

== ENCOUNTER → 2020-03-23 | Outpatient (REF) | payer OTHER ==
[2020-05-02 21:10] LABS: CALCIUM LEVEL 9.2 MG/DL (8.8-10.2); CREATININE FOR GFR 1.49 MG/DL (0.55-1.30); POTASSIUM SERUM 4.7 MEQ/L (3.5-5.1)
== END ==
LOC: M PLALAB 09:33
PROVIDERS: ATTEND Family Medicine
DX: R79.89 Other specified abnormal findings of blood chemistry (principal)

== ENCOUNTER → 2021-10-21 | Outpatient (CLI) | payer OTHER, BC ==
[2021-10-21 15:49] LABS: HEMATOCRIT 46.6 % (36.0-47.0); HEMOGLOBIN 14.3 g/dl (12.0-15.5); MEAN CORPUSCULAR HEMOGLOBIN 27.5 pg (27.0-33.0); MEAN CORPUSCULAR HGB CONC 30.7 g/dl (32.0-36.5); MEAN CORPUSCULAR VOLUME 89.6 fl (80.0-96.0); PLATELET COUNT, AUTOMATED 256 10^3/uL (150-450); WHITE BLOOD COUNT 9.9 10^3/uL (4.0-10.0)
[2021-10-21 16:09] LABS: CREATININE FOR GFR 1.28 MG/DL (0.55-1.30)
[2021-10-21 16:10] LABS: ALBUMIN 3.5 GM/DL (3.2-5.2); BILIRUBIN,TOTAL 0.5 MG/DL (0.2-1.0); CALCIUM LEVEL 9.3 MG/DL (8.8-10.2); CHOLESTEROL RISK RATIO 7.857 (<5); THYROID STIMULATING HORMONE 0.827 uIU/ML (0.358-3.740); TOTAL PROTEIN 7.3 GM/DL (6.4-8.2)
[2021-10-21 17:08] LABS: CREATININE, URINE 54.4 MG/DL; MAU/CREAT RATIO 34.9 MCG/MG (0.0-30.0)
[2021-10-21 18:51] LABS: HEMOGLOBIN A1c 7.4 %
== END ==
LOC: M WUC 14:11
PROVIDERS: ATTEND Family Medicine
DX: E11.65 Type 2 diabetes mellitus with hyperglycemia (principal)

== ENCOUNTER → 2021-12-28 | Outpatient (CLI) | payer BC, OTHER | LOC: M WHC 08:03 | PROVIDERS: ATTEND Family Medicine | DX: Z12.31 Encounter for screening mammogram for malignant neoplasm of breast (principal); Z85.42 Personal history of malignant neoplasm of other parts of uterus; Z80.0 Family history of malignant neoplasm of digestive organs ==

== ENCOUNTER 2022-11-29 19:19 | Inpatient (IN) | payer BC, OTHER ==
[~2022-11-29] VITALS: Ht 167.6 cm; Wt 135.7 kg
[2022-11-29] MEDS ORDERED: NS 1,000 ML IV ONE (22:50)
[2022-11-29 23:39] LABS: BASO # 0.1 10^3/uL (0.0-0.2); BASO % 0.5 % (0.0-1.0); EOS # 0.4 10^3/uL (0.0-0.5); EOS % 2.4 % (0.0-3.0); HEMOGLOBIN 13.5 g/dl (12.0-15.5); LYMPH % 11.1 % (24.0-44.0); MEAN CORPUSCULAR HEMOGLOBIN 27.8 pg (27.0-33.0); MEAN CORPUSCULAR HGB CONC 31.4 g/dl (32.0-36.5); MEAN CORPUSCULAR VOLUME 88.7 fl (80.0-96.0); MONO # 1.4 10^3/uL (0.0-0.8); MONO % 8.1 % (2.0-8.0); NEUTROPHILS # 13.6 10^3/uL (1.5-8.5); NEUTROPHILS % 77.2 % (36.0-66.0); PLATELET COUNT, AUTOMATED 259 10^3/uL (150-450); RED BLOOD COUNT 4.85 10^6/uL (4.00-5.40); WHITE BLOOD COUNT 17.7 10^3/uL (4.0-10.0)
[2022-11-29] MEDS ORDERED: VANCOMYCIN HCL 1,000 MG, VIAL MATE ADAPTER 1 EACH in NS 250 ML IV ONE (23:55)
[2022-11-29] MEDS ORDERED: PIPERACILLIN/TAZOBACTAM SOD 3.375 GM in D5W MINI-BAG PLUS 50 ML IV ONE (23:55)
[2022-11-30] MEDS ORDERED: VANCOMYCIN HCL 1,000 MG, VIAL MATE ADAPTER 1 EACH in NS 250 ML IV ONE ×2 (00:30→01:30)
[2022-11-30 00:47] LABS: ERYTHROCYTE SEDIMENTATION RATE 121 mm/hr (0-30)
[2022-11-30] MEDS ORDERED: NS 1,000 ML IV ONE ×3 (00:55)
[2022-11-30] MEDS ORDERED: ACETAMINOPHEN TAB 650MG DOSE (2X325MG) PO PRN (02:55)
[2022-11-30] MEDS ORDERED: GLUCOSE 4GM CHEW TABLET PO PRN (02:55)
[2022-11-30] MEDS ORDERED: HYDROMORPHONE HCL 0.5 MG/ 0.5 ML SYRINGE IV PRN (02:55)
[2022-11-30] MEDS ORDERED: DEXTROSE 50% 50ML SYRINGE IV PRN (02:55)
[2022-11-30] MEDS ORDERED: GLUCAGON INJ 1MG VIAL SC PRN (02:55)
[2022-11-30] MEDS ORDERED: VANCOMYCIN HCL 1,000 MG, VIAL MATE ADAPTER 1 EACH in NS 250 ML IV SCH (03:25)
[2022-11-30 03:35] VITALS: BP 156/77
[2022-11-30 04:47] LABS: ALBUMIN 2.1 G/DL (3.2-5.2); BILIRUBIN,TOTAL 0.7 MG/DL (0.3-1.2); CALCIUM LEVEL 7.1 MG/DL (8.3-10.6); CREATININE FOR GFR 1.13 MG/DL (0.55-1.30); GLOMERULAR FILTRATION RATE 51.8 (>45); TOTAL PROTEIN 5.5 G/DL (5.7-8.2)
[2022-11-30 06:00] VITALS: BP 109/52
[2022-11-30] MEDS: PIPERACILLIN/TAZOBACTAM SOD 3.375 GM in D5W MINI-BAG PLUS 50 ML IV SCH ×3 (06:04→18:00)
[2022-11-30] MEDS: INSULIN LISPRO (NovoLOG) PER UNIT SC SCH ×4 (06:04→21:00)
[2022-11-30] MEDS ORDERED: TRES1INJ2 SC (08:44)
[2022-11-30] MEDS ORDERED: DULA3PEN SC (08:44)
[2022-11-30] MEDS ORDERED: ZOLO100T PO (08:44)
[2022-11-30] MEDS ORDERED: FARX1TAB3 PO (08:44)
[2022-11-30] MEDS ORDERED: VITAD400CA PO (08:46)
[2022-11-30] MEDS ORDERED: VITA100093 PO (08:49)
[2022-11-30] MEDS ORDERED: HOME MED LIST COMPLETE! XX SCH (08:50)
[2022-11-30] MEDS ORDERED: LEVEMIR (INSULIN DETEMIR) 1 UNITS/0.01ML SC SCH ×2 (09:00→21:00)
[2022-11-30] MEDS ORDERED: PROHANCE 279.3MG/ML 15ML VIAL As Ordered ONE (10:17)
[2022-11-30] MEDS: VITAMIN D 1,000 INTERNATIONAL UNITS TABLET PO SCH (11:03)
[2022-11-30] MEDS: ATORVASTATIN 20 MG TAB PO SCH (11:04)
[2022-11-30] MEDS: hydroCHLOROthiazide 12.5 MG CAPSULE PO SCH (11:04)
[2022-11-30] MEDS: SERTRALINE 100 MG TAB PO SCH (11:05)
[2022-11-30 11:25] LABS: BASO # 0.1 10^3/uL (0.0-0.2); BASO % 0.6 % (0.0-1.0); EOS # 0.5 10^3/uL (0.0-0.5); EOS % 3.9 % (0.0-3.0); HEMATOCRIT 38.4 % (36.0-47.0); HEMOGLOBIN 12.3 g/dl (12.0-15.5); LYMPH # 1.1 10^3/uL (1.5-5.0); LYMPH % 8.5 % (24.0-44.0); MEAN CORPUSCULAR HEMOGLOBIN 28.5 pg (27.0-33.0); MEAN CORPUSCULAR VOLUME 89.1 fl (80.0-96.0); MONO # 1.2 10^3/uL (0.0-0.8); MONO % 9.1 % (2.0-8.0); NEUTROPHILS # 9.8 10^3/uL (1.5-8.5); PLATELET COUNT, AUTOMATED 191 10^3/uL (150-450); RED BLOOD COUNT 4.31 10^6/uL (4.00-5.40); WHITE BLOOD COUNT 12.8 10^3/uL (4.0-10.0)
[2022-11-30 11:37] LABS: HEMOGLOBIN A1c 8.3 % (4.0-6.0)
[2022-11-30 11:46] LABS: CHOLESTEROL RISK RATIO 9.85 (<5); LDL CHOLESTEROL 91.2 MG/DL (<100)
[2022-11-30] MEDS: VANCOMYCIN HCL 1,000 MG, VIAL MATE ADAPTER 1 EACH in D5W 250 ML IV SCH (13:09)
[2022-11-30] MEDS ORDERED: VANCOMYCIN HCL 750 MG, VIAL MATE ADAPTER 1 EACH in D5W 250 ML IV SCH (16:00)
[2022-11-30] MEDS ORDERED: VANCOMYCIN HCL 500 MG in D5W MINI-BAG PLUS 100 ML IV SCH (17:00)
[2022-11-30] MEDS ORDERED: ENOXAPARIN 40MG/0.4ML SYRINGE (J1650 PER 10MG) SC SCH (18:00)
[2022-11-30] MEDS ORDERED: ACETAMINOPHEN 1000MG 100ML IV BAG As Ordered ONE (18:35)
[2022-11-30] MEDS ORDERED: BUPIVACAINE HCL 0.5% 30ML VIAL As Ordered ONE (18:49)
[2022-11-30] MEDS ORDERED: LIDOCAINE 2% MDV 20ML VIAL ONE (18:49)
[2022-11-30] MEDS ORDERED: BUPIVACAINE HCL 0.5% 30ML VIAL ONE (18:49)
[2022-11-30] MEDS ORDERED: LIDOCAINE 2% MDV 20ML VIAL As Ordered ONE (18:49)
[2022-11-30] MEDS ORDERED: GENTAMICIN SULF 80MG/2ML VIAL As Ordered ONE (19:07)
[2022-11-30] MEDS ORDERED: GENTAMICIN SULF 80MG/2ML VIAL ONE (19:07)
[2022-11-30] MEDS ORDERED: fentaNYL 100 MCG/2 ML INJECTION As Ordered ONE (19:34)
[2022-11-30] MEDS ORDERED: MIDAZOLAM INJ 2MG/2ML VIAL As Ordered ONE (19:34)
[2022-11-30] MEDS ORDERED: KETAMINE HCL 200MG/20ML VIAL As Ordered ONE (19:34)
[2022-11-30] MEDS ORDERED: GLYCOPYRROLATE INJ 0.2 MG/ML 2 ML VIAL As Ordered ONE (19:34)
[2022-11-30] MEDS ORDERED: ONDANSETRON 4MG 2ML VIAL As Ordered ONE (19:34)
[2022-11-30] MEDS ORDERED: LIDOCAINE 2% 100MG/5ML SDV (FOR ANES.) As Ordered ONE (19:34)
[2022-11-30] MEDS ORDERED: propofoL 200 MG/20 ML VIAL As Ordered ONE (19:34)
[2022-11-30] MEDS ORDERED: ZOSYN 3.375GM VIAL As Ordered ONE (19:36)
[2022-11-30] MEDS ORDERED: ZOSYN 3.375GM VIAL ONE (19:36)
[2022-11-30] MEDS ORDERED: PERCOCET 5MG/325MG TAB PO PRN ×2 (20:30)
[2022-11-30 21:00] VITALS: BP 107/57
[2022-11-30 21:30] VITALS: BP 107/58
[2022-11-30 22:00] VITALS: BP 108/57
[2022-11-30 23:00] VITALS: BP 106/57
[2022-12-01] VITALS (8 sets, daily range): BP systolic 107–132; BP diastolic 48–68
[2022-12-01] MEDS: PIPERACILLIN/TAZOBACTAM SOD 3.375 GM in D5W MINI-BAG PLUS 50 ML IV SCH ×5 (00:07→23:05)
[2022-12-01] MEDS: VANCOMYCIN HCL 1,000 MG, VIAL MATE ADAPTER 1 EACH in D5W 250 ML IV SCH ×2 (00:48→14:16)
[2022-12-01 06:26] LABS: BASO # 0.1 10^3/uL (0.0-0.2); BASO % 1.1 % (0.0-1.0); EOS # 0.5 10^3/uL (0.0-0.5); EOS % 5.1 % (0.0-3.0); HEMATOCRIT 41.1 % (36.0-47.0); HEMOGLOBIN 12.7 g/dl (12.0-15.5); LYMPH # 1.3 10^3/uL (1.5-5.0); LYMPH % 12.5 % (24.0-44.0); MEAN CORPUSCULAR HEMOGLOBIN 27.8 pg (27.0-33.0); MEAN CORPUSCULAR HGB CONC 30.9 g/dl (32.0-36.5); MEAN CORPUSCULAR VOLUME 89.9 fl (80.0-96.0); MONO # 0.7 10^3/uL (0.0-0.8); MONO % 6.9 % (2.0-8.0); NEUTROPHILS # 7.5 10^3/uL (1.5-8.5); NEUTROPHILS % 73.3 % (36.0-66.0); PLATELET COUNT, AUTOMATED 250 10^3/uL (150-450); RED BLOOD COUNT 4.57 10^6/uL (4.00-5.40); WHITE BLOOD COUNT 10.2 10^3/uL (4.0-10.0)
[2022-12-01 06:50] LABS: CALCIUM LEVEL 8.3 MG/DL (8.3-10.6); CREATININE FOR GFR 1.06 MG/DL (0.55-1.30); GLOMERULAR FILTRATION RATE 55.7 (>45); POTASSIUM SERUM 3.8 MMOL/L (3.5-5.1)
[2022-12-01] MEDS ORDERED: ENOXAPARIN 40MG/0.4ML SYRINGE (J1650 PER 10MG) SC SCH (09:00)
[2022-12-01] MEDS ORDERED: DAPAGLIFLOZIN PROPANEDIOL 10MG TABLET (FARXIGA) PO SCH (09:00)
[2022-12-01] MEDS: SERTRALINE 100 MG TAB PO SCH (09:02)
[2022-12-01] MEDS: ATORVASTATIN 20 MG TAB PO SCH (09:02)
[2022-12-01] MEDS: INSULIN LISPRO (NovoLOG) PER UNIT SC SCH ×4 (09:02→20:39)
[2022-12-01] MEDS: hydroCHLOROthiazide 12.5 MG CAPSULE PO SCH (09:02)
[2022-12-01] MEDS: VITAMIN D 1,000 INTERNATIONAL UNITS TABLET PO SCH (09:02)
[2022-12-01] MEDS ORDERED: VANCOMYCIN HCL 1,000 MG in IV FLUID PLACE HOLDER 1 EA IV SCH (11:10)
[2022-12-01] MEDS: LEVEMIR (INSULIN DETEMIR) 1 UNITS/0.01ML SC SCH (20:39)
[2022-12-01] MEDS: HEPARIN SOD (PORCINE) 5000UNITS/ML 1ML VIAL/SYRINGE SQ SCH (23:05)
[2022-12-02] MEDS: VANCOMYCIN HCL 1,000 MG, VIAL MATE ADAPTER 1 EACH in D5W 250 ML IV SCH ×2 (00:38→12:56)
[2022-12-02 02:00] VITALS: BP 123/67
[2022-12-02] MEDS: PIPERACILLIN/TAZOBACTAM SOD 3.375 GM in D5W MINI-BAG PLUS 50 ML IV SCH ×3 (05:44→17:24)
[2022-12-02] MEDS: HEPARIN SOD (PORCINE) 5000UNITS/ML 1ML VIAL/SYRINGE SQ SCH ×3 (05:45→21:43)
[2022-12-02 06:00] VITALS: BP 119/63
[2022-12-02 06:10] LABS: BASO # 0.1 10^3/uL (0.0-0.2); EOS # 0.7 10^3/uL (0.0-0.5); EOS % 7.7 % (0.0-3.0); HEMATOCRIT 35.8 % (36.0-47.0); HEMOGLOBIN 11.3 g/dl (12.0-15.5); LYMPH # 1.4 10^3/uL (1.5-5.0); LYMPH % 15.3 % (24.0-44.0); MEAN CORPUSCULAR HEMOGLOBIN 28.5 pg (27.0-33.0); MEAN CORPUSCULAR HGB CONC 31.6 g/dl (32.0-36.5); MEAN CORPUSCULAR VOLUME 90.2 fl (80.0-96.0); MONO # 0.8 10^3/uL (0.0-0.8); MONO % 8.5 % (2.0-8.0); NEUTROPHILS # 6.2 10^3/uL (1.5-8.5); NEUTROPHILS % 66.5 % (36.0-66.0); PLATELET COUNT, AUTOMATED 231 10^3/uL (150-450); RED BLOOD COUNT 3.97 10^6/uL (4.00-5.40); WHITE BLOOD COUNT 9.3 10^3/uL (4.0-10.0)
[2022-12-02 06:53] LABS: CALCIUM LEVEL 8.1 MG/DL (8.3-10.6); CREATININE FOR GFR 1.13 MG/DL (0.55-1.30); GLOMERULAR FILTRATION RATE 51.8 (>45); POTASSIUM SERUM 3.8 MMOL/L (3.5-5.1)
[2022-12-02] MEDS: ATORVASTATIN 20 MG TAB PO SCH (07:47)
[2022-12-02] MEDS: SERTRALINE 100 MG TAB PO SCH (07:47)
[2022-12-02] MEDS: VITAMIN D 1,000 INTERNATIONAL UNITS TABLET PO SCH (07:47)
[2022-12-02] MEDS: INSULIN LISPRO (NovoLOG) PER UNIT SC SCH ×4 (07:47→21:44)
[2022-12-02] MEDS: hydroCHLOROthiazide 12.5 MG CAPSULE PO SCH (07:48)
[2022-12-02 14:00] VITALS: BP 118/60
[2022-12-02 21:10] VITALS: BP_SYST 111; BP_SYST 160; BP_DIAS 71; BP_DIAS 72
[2022-12-02] MEDS: LEVEMIR (INSULIN DETEMIR) 1 UNITS/0.01ML SC SCH (21:44)
[2022-12-03] MEDS: PIPERACILLIN/TAZOBACTAM SOD 3.375 GM in D5W MINI-BAG PLUS 50 ML IV SCH ×2 (00:05→05:39)
[2022-12-03] MEDS: VANCOMYCIN HCL 1,000 MG, VIAL MATE ADAPTER 1 EACH in D5W 250 ML IV SCH (01:37)
[2022-12-03] MEDS: HEPARIN SOD (PORCINE) 5000UNITS/ML 1ML VIAL/SYRINGE SQ SCH (05:39)
[2022-12-03 06:00] LABS: BASO # 0.1 10^3/uL (0.0-0.2); EOS # 0.6 10^3/uL (0.0-0.5); EOS % 6.9 % (0.0-3.0); HEMATOCRIT 37.4 % (36.0-47.0); LYMPH # 1.2 10^3/uL (1.5-5.0); LYMPH % 13.2 % (24.0-44.0); MEAN CORPUSCULAR HEMOGLOBIN 28.1 pg (27.0-33.0); MEAN CORPUSCULAR HGB CONC 32.1 g/dl (32.0-36.5); MEAN CORPUSCULAR VOLUME 87.6 fl (80.0-96.0); MONO # 0.8 10^3/uL (0.0-0.8); MONO % 8.5 % (2.0-8.0); NEUTROPHILS # 6.1 10^3/uL (1.5-8.5); NEUTROPHILS % 68.4 % (36.0-66.0); PLATELET COUNT, AUTOMATED 252 10^3/uL (150-450); RED BLOOD COUNT 4.27 10^6/uL (4.00-5.40)
[2022-12-03 06:08] VITALS: BP 162/75
[2022-12-03 06:16] LABS: CALCIUM LEVEL 8.3 MG/DL (8.3-10.6); CREATININE FOR GFR 1.01 MG/DL (0.55-1.30); GLOMERULAR FILTRATION RATE 58.9 (>45); POTASSIUM SERUM 3.8 MMOL/L (3.5-5.1)
[2022-12-03] MEDS: VITAMIN D 1,000 INTERNATIONAL UNITS TABLET PO SCH (08:20)
[2022-12-03] MEDS: ATORVASTATIN 20 MG TAB PO SCH (08:20)
[2022-12-03] MEDS: INSULIN LISPRO (NovoLOG) PER UNIT SC SCH ×2 (08:20→12:00)
[2022-12-03 08:21] VITALS: BP 149/60
[2022-12-03] MEDS: SERTRALINE 100 MG TAB PO SCH (08:21)
[2022-12-03] MEDS: hydroCHLOROthiazide 12.5 MG CAPSULE PO SCH (08:21)
[2022-12-03] MEDS ORDERED: AUGMENTIN 875 MG TAB PO SCH (09:00)
[2022-12-03] MEDS ORDERED: AMOX875T2 PO (10:59)
[2022-12-03] MEDS ORDERED: LEVEMIR (INSULIN DETEMIR) 1 UNITS/0.01ML SC SCH (21:00)
== END 2022-12-03 12:01 | disposition home or self-care (01) | DRG 710 ==
LOC: M ED 19:19 → M ED INP 11-30 00:49 → M MSPAV 11-30 03:35
PROVIDERS: ADMIT Internal Medicine; ATTEND Student in an Organized Health Care Education/Training Program
PROC: 0Y6P0Z0 Detachment at Right 1st Toe, Complete, Open Approach (ICD-10-PCS; principal; 2022-11-30 17:30)
DX: A40.9 Streptococcal sepsis, unspecified (principal); E87.20 Acidosis, unspecified; E11.621 Type 2 diabetes mellitus with foot ulcer; N18.30 Chronic kidney disease, stage 3 unspecified; R65.20 Severe sepsis without septic shock; L08.9 Local infection of the skin and subcutaneous tissue, unspecified; E11.69 Type 2 diabetes mellitus with other specified complication; L97.519 Non-pressure chronic ulcer of other part of right foot with unspecified severity; E66.01 Morbid (severe) obesity due to excess calories; Z68.42 Body mass index [BMI] 45.0-49.9, adult; I12.9 Hypertensive chronic kidney disease with stage 1 through stage 4 chronic kidney disease, or unspecified chronic kidney disease; E78.5 Hyperlipidemia, unspecified; F32.A Depression, unspecified; M86.9 Osteomyelitis, unspecified; Z90.79 Acquired absence of other genital organ(s); Z87.891 Personal history of nicotine dependence; Z79.4 Long term (current) use of insulin; Z79.899 Other long term (current) drug therapy; E11.22 Type 2 diabetes mellitus with diabetic chronic kidney disease

== ENCOUNTER → 2023-02-17 | Outpatient (CLI) | payer BC, OTHER ==
[~2023-02-17] MED LIST changes: +AMOX875T2 PO; +DULA3PEN SC; +FARX1TAB3 PO; +TRES1INJ2 SC; +VITA100093 PO; +VITAD400CA PO; +ZOLO100T PO
== END ==
LOC: M WHC 08:05
PROVIDERS: ATTEND Family Medicine
DX: Z12.31 Encounter for screening mammogram for malignant neoplasm of breast (principal)

== ENCOUNTER → 2023-11-13 | Outpatient (CLI) | payer BC | LOC: M RAD 14:46 | PROVIDERS: ATTEND Physician Assistant Surgical | DX: M17.0 Bilateral primary osteoarthritis of knee (principal); S83.242A Other tear of medial meniscus, current injury, left knee, initial encounter; S76.112A Strain of left quadriceps muscle, fascia and tendon, initial encounter; M25.462 Effusion, left knee; S83.241A Other tear of medial meniscus, current injury, right knee, initial encounter; M25.461 Effusion, right knee; Y92.9 Unspecified place or not applicable; Y93.9 Activity, unspecified ==